=== PATIENT | female | born 1985 | race Caucasian/White ===

== ENCOUNTER 2022-10-14 16:38 | Emergency (ER) | payer BC ==
[~2022-10-14] VITALS: Ht 172.7 cm; Wt 106.8 kg
[~2022-10-14 16:38] MED LIST: 00186-0370-20 IH; CEPHALEXIN500 M1 PO; LORTAB 5/500 501 TAB PO; NORVASC2.5 MG PO; PROAIR HFA0.09 MG/AC IH
[2022-10-14 16:44] VITALS: BP 143/96; TEMP 98.1
[2022-10-14 17:00] LABS: COLLECTION METHOD CLEAN CATCH
[2022-10-14 17:08] LABS: PH 5.5 (5.0-8.5); URINE APPEARANCE Clear (CLEAR/HAZY); URINE BLOOD Negative (NEGATIVE); URINE COLOR Yellow (YELLOW); URINE GLUCOSE Negative (NEGATIVE); URINE KETONE Negative (NEGATIVE); URINE NITRATE Negative (NEGATIVE); URINE PROTEIN(semi-quant) Negative (NEGATIVE); URINE UROBILINOGEN 0.2 E.U/dL (0.2-1.0)
[2022-10-14 17:08] LABS: BASO % 0.3 % (0.0-2.0); EOS # 0.1 K/mm3 (0.0-0.7); EOS % 1.3 % (0.0-4.0); HEMATOCRIT 41.1 % (37.0-47.0); HEMOGLOBIN 13.7 g/dl (12.5-16.0); LYMPH # 2.1 K/mm3 (1.2-3.4); LYMPH % 20.8 % (20.0-51.0); MEAN CELL VOLUME 88 fl (80.0-100.0); MEAN CORPUSCULAR HEMOGLOBIN 29 pg (27-31); MEAN CORPUSCULAR HGB CONC 33 g/dl (33.0-37.0); MEAN PLATELET VOLUME 10.6 fl (7.4-10.4); MONO % 9.3 % (1.7-9.3); PLATELET COUNT 274 K/mm3 (130-400); RED BLOOD COUNT 4.69 M/mm3 (4.10-5.30); REDCELL DISTRIBUTION WIDTH-CV 12.7 % (11.5-14.5)
[2022-10-14 17:09] LABS: MUCOUS Present (NOT PRESENT); SQUAMOUS EPITHELIAL 0-2 /hpf (0-10); URINE BACTERIA None Seen /hpf (NONE SEEN); URINE RBC 0-2 /hpf (0-2)
[2022-10-14 17:24] LABS: ALBUMIN 3.7 gm/dL (3.5-5.0); BILIRUBIN,TOTAL 0.3 mg/dL (0.2-1.2); C-REACTIVE PROTEIN 2.62 mg/dL (0.00-0.50); CALCIUM 9.4 mg/dL (8.4-10.2); CREATININE, serum 0.88 mg/dL (0.57-1.11); POTASSIUM 3.9 mmol/L (3.5-4.5); TOTAL PROTEIN 7.5 gm/dL (6.2-8.1)
[2022-10-14 19:50] VITALS: PULSE 78
== END 2022-10-14 19:56 | disposition home or self-care (01) ==
LOC: COL.ER 16:38
PROVIDERS: Nurse Practitioner
DX: R10.32 Left lower quadrant pain (principal); R79.82 Elevated C-reactive protein (CRP); Z91.040 Latex allergy status
CPT/HCPCS: J1885; J2405; J7030; Q9967